=== PATIENT | female | born 1940 | race Caucasian/White ===

== ENCOUNTER 2017-07-09 22:53 | Inpatient (IN) | payer OTHER, MEDICAID ==
[2017-07-10 00:03] LABS: % IMMATURE GRANULYOCYTES 0.3 % (0.0-1.1); ABSOLUTE IMMATURE GRANULOCYTES 0.03 10^3/uL (0.00-0.10); ADD DIFF? NO; ADD MORPH? NO; ADD SCAN? NO; ATYPICAL LYMPHOCYTE FLAG 10 (0-99); FRAGMENT RBC FLAG 10 (0-99); HEMATOCRIT 40.3 % (38.0-47.0); HEMOGLOBIN 12.9 g/dL (12.6-16.3); LEFT SHIFT FLG 0 (0-99); LIPEMIA HEMOLYSIS FLAG 80 (0-99); MEAN CELL HEMOGLOBIN 26.5 pg (27.9-34.1); MEAN CELL VOLUME 82.9 fL (81.5-99.8); MEAN PLATELET VOLUME 10.2 fL (8.7-11.7); PLATELET CLUMPS FLAG 0 (0-99); PLATELET COUNT 320 10^3/uL (150-400); RED BLOOD CELL COUNT 4.86 10^6/uL (4.18-5.33); RED CELL DISTRIBUTION WIDTH 13.2 % (11.5-15.2)
--- NOTE | 2017-07-10 00:06 | EDPHY ---
H & P Stated Complaint: Increased weakness today Time Seen by Provider: 07/09/17 23:10 HPI/ROS: Chief Complaint: Increased leg weakness HPI: 76-year-old woman with a diagnosis of an autoimmune neuropathy is presenting with increasing lower extremity weakness today. Patient normally gets around on a scooter was usually able to ambulate in her home. She sat on the couch at 6 o'clock tonight but it o'clock when she tried to get up she was unable to weightbear stand. She describes weakness in both of her legs. She has had similar symptoms in the past but not to this degree. Denies any fevers or chills. No nausea or vomiting. Has had some cloudy urine for the last couple of weeks. No abdominal pain. No fevers or chills. No back pain. She is otherwise in her normal state of health. She sees Dr. Salgado from Neurology was been following or as an appoint with him on the . EMS was called and she was unable to weightbear on her own at home. ROS: 10 point Review of Systems is negative except as noted in the HPI. PMH: Unspecified autoimmune neuropathy, hypertension, left bundle-branch block Medications: Metoprolol Allergies: No known drug allergies Social History: No smoking, no alcohol, no recreational drug use Family History: non-contributory Physical Exam: Gen: Awake, Alert, No Distress HEENT: Nose: no rhinorrhea Eyes: PERRLA, EOMI Mouth: Moist mucosa Neck: Supple, no JVD Chest: nontender, lungs clear to auscultation Heart: S1, S2 normal, no murmur Abd: Soft, non-tender, no guarding Back: no CVA tenderness, no midline tenderness Ext: no edema, non-tender Skin: no rash Neuro: CN II-XII intact, Sensation grossly intact, Strength strength is 4 in 5 in bilateral upper extremities, she has proximal weakness in bilateral lower extremities is unable to raise her legs above the bed but is able to move them bilaterally. - Personal History Current Tetanus/Diphtheria Vaccine: Yes Current Tetanus Diphtheria and Acellular Pertussis (TDAP): Yes - Medical/Surgical History Hx Asthma: No Hx Chronic Respiratory Disease: No Hx Diabetes: No Hx Cardiac Disease: Yes Hx Renal Disease: No Hx Cirrhosis: No Hx Alcoholism: No Hx HIV/AIDS: No Hx Splenectomy or Spleen Trauma: No Other PMH: nueropathy, htn, lupus like autoinmmune disorder - Social History Smoking Status: Never smoked Constitutional: Initial Vital Signs Temperature (C) 37.4 C 07/09/17 23:04 Heart Rate 79 07/09/17 23:04 Respiratory Rate 18 07/09/17 23:04 Blood Pressure 191/102 H 07/09/17 23:04 O2 Sat (%) 92 07/09/17 23:04 O2 Delivery Mode Room Air Allergies/Adverse Reactions: Penicillins Allergy (Unknown, Verified 01/27/12 22:58) Unknown methotrexate [Methotrexate] Allergy (Verified 01/27/12 22:58) Home Medications: Medication Instructions Recorded Metoprolol Tartrate [Lopressor 25 25 mg PO BID #60 tab 04/04/14 mg (*)] Medical Decision Making - Diagnostics EKG Interpretation: ECG time 1:08 a.m. left bundle branch block with a rate of 58, unchanged from prior. ED Course/Re-evaluation: 76-year-old woman with a worsening symmetrical weakness of her bilateral lower extremities to the point that she is unable to weightbear at home at this time. ECG shows a left bundle branch block which is unchanged from her priors. She has not had any chest pain or shortness of breath. I am awaiting urinalysis results. She has an elevated troponin to 0.07. Does have a history of renal insufficiency in the past and seeing on her medical history. She will certainly need to be admitted for further evaluation. I have discussed with Dr. Villa. He will admit to his service for further evaluation. - Data Points Laboratory Results: Laboratory Results 07/09/17 23:08 07/09/17 23:08 07/10/17 07/09/17 07/09/17 01:45 23:08 23:08 WBC 8.90 10^3/uL 10^3/uL (3.80-9.50) RBC 4.86 10^6/uL 10^6/uL (4.18-5.33) Hgb 12.9 g/dL g/dL (12.6-16.3) Hct 40.3 % % (38.0-47.0) MCV 82.9 fL fL (81.5-99.8) MCH 26.5 pg L pg (27.9-34.1) MCHC 32.0 g/dL L g/dL (32.4-36.7) RDW 13.2 % % (11.5-15.2) Plt Count 320 10^3/uL 10^3/uL (150-400) MPV 10.2 fL fL (8.7-11.7) Neut % (Auto) 69.1 % % (39.3-74.2) Lymph % (Auto) 21.1 % % (15.0-45.0) [place] % (Auto) 7.1 % % (4.5-13.0) Eos % (Auto) 2.1 % % (0.6-7.6) Baso % (Auto) 0.3 % % (0.3-1.7) Nucleat RBC Rel Count 0.0 % % (0.0-0.2) Absolute Neuts (auto) 6.14 10^3/uL 10^3/uL (1.70-6.50) Absolute Lymphs (auto) 1.88 10^3/uL 10^3/uL (1.00-3.00) Absolute Monos (auto) 0.63 10^3/uL 10^3/uL (0.30-0.80) Absolute Eos (auto) 0.19 10^3/uL 10^3/uL (0.03-0.40) Absolute Basos (auto) 0.03 10^3/uL 10^3/uL (0.02-0.10) Absolute Nucleated RBC 0.00 10^3/uL 10^3/uL (0-0.01) Immature Gran % 0.3 % % (0.0-1.1) Immature Gran # 0.03 10^3/uL 10^3/uL (0.00-0.10) Sodium 139 mEq/L mEq/L (134-144) Potassium 3.3 mEq/L L mEq/L (3.5-5.2) Chloride 102 mEq/L mEq/L (97-110) Carbon Dioxide 24 mEq/l mEq/l (22-31) Anion Gap 13 mEq/L mEq/L (8-16) BUN 11 mg/dL mg/dL (7-23) Creatinine 1.2 mg/dL H mg/dL (0.6-1.0) Estimated GFR 44 Glucose 114 mg/dL H mg/dL (70-100) Calcium 9.7 mg/dL mg/dL (8.5-10.4) Troponin I 0.070 ng/mL H ng/mL (0.000-0.034) Urine Color Pending Urine Appearance Pending Urine pH Pending Ur Specific [place] Pending Urine Protein Pending Urine Ketones Pending Urine Blood Pending Urine Nitrate Pending Urine Bilirubin Pending Urine Urobilinogen Pending Ur Leukocyte Esterase Pending Urine Glucose Pending Departure - Departure Disposition: [facility] Inpatient Acute Clinical Impression: Weakness Condition: Fair Referrals: Dorys Schneider NP [Primary Care Provider] - As per Instructions
[2017-07-10 00:14] LABS: ANION GAP 13 mEq/L (8-16); CALCIUM 9.7 mg/dL (8.5-10.4); CARBON DIOXIDE 24 mEq/l (22-31); CHLORIDE 102 mEq/L (97-110); CREATININE 1.2 mg/dL (0.6-1.0); GLOMERULAR FILTRATION RATE 44; GLUCOSE 114 mg/dL (70-100); POTASSIUM 3.3 mEq/L (3.5-5.2); SODIUM 139 mEq/L (134-144)
--- NOTE | 2017-07-10 01:11 | CPEKG ---
Heart Rate: 58 RR Interval: 1034 P-R Interval: 204 QRSD Interval: 168 QT Interval: 512 QTC Interval: 504 P [place]: 55 QRS [place]: -31 T Wave [place]: 150 EKG Severity - ABNORMAL ECG - EKG Impression: SINUS RHYTHM EKG Impression: LEFT BUNDLE BRANCH BLOCK Electronically Signed By: Ariel Ma 10-Jul-2017 07:08:52
[2017-07-10 01:54] LABS: COLOR YELLOW; LEUKOCYTE ESTERASE,URINE 3+ (NEGATIVE); NITRITE,URINE POSITIVE (NEGATIVE)
[2017-07-10 02:14] LABS: BACTERIA 1+ /hpf (NONE SEEN); WBC,URINE 50-182 /hpf (0-3)
[2017-07-10] MEDS ORDERED: ONDANSETRON 4 MG/2 ML VIAL IVP PRN (02:27)
[2017-07-10] MEDS ORDERED: ONDANSETRON DISINTEGRATING 4 MG TAB PO PRN (02:27)
[2017-07-10] MEDS ORDERED: NS 1,000 ML IV ONE (02:27)
[2017-07-10] MEDS ORDERED: ACETAMINOPHEN 325 MG TAB PO PRN (02:27)
--- NOTE | 2017-07-10 02:33 | PDGENHP ---
History and Physical - Chief Complaint Weakness - History of Present Illness 76 yo F w/ hx of idiopathic neuropathy and HTN presents with fatigue and generalized weakness. Patient mostly uses a motorized scooter for mobility but is usually able to rise from a seated position and take a few steps. On the evening prior to admission, however, patient felt very weak and could not rise from a seated position. She lives alone and as a result called EMS. Aside from weakness and fatigue, she denies other symptoms, including fever, chills, dysuria. frequency, flank pain, and diarrhea. History Information - Allergies/Home Medication List Allergies/Adverse Reactions: Penicillins Allergy (Unknown, Verified 01/27/12 22:58) Unknown methotrexate [Methotrexate] Allergy (Verified 01/27/12 22:58) I have personally reviewed and updated: family history, medical history - Past Medical History hypertension Additional medical history: Idiopathic neuropathy - Family History Negative for: connective tissue disorder - Social History Smoking Status: Never smoked Drug Use: None Review of Systems ROS: 10pt was reviewed & negative except for what was stated in HPI & below Physical Exam Temp Pulse Resp BP Pulse Ox 36.5 C 71 16 184/110 H 92 07/10/17 01:00 07/10/17 02:00 07/10/17 02:00 07/10/17 02:00 07/10/17 02:00 Constitutional: no apparent distress, obese Eyes: PERRL, EOMI Ears, Nose, Mouth, Throat: moist mucous membranes, no oral mucosal ulcers Cardiovascular: regular rate and rhythym, no murmur, rub, or gallop Respiratory: no respiratory distress, no rales or rhonchi Gastrointestinal: normoactive bowel sounds, soft, non-tender abdomen Skin: warm, no rashes or abrasions Musculoskeletal: no muscle tenderness, no joint effusions Neurologic: AAOx3, CN II-XII Intact, other (4+/5 b/ LE strength, symmetric) Psychiatric: interacting appropriately, not anxious Lab Data & Imaging Review 07/09/17 23:08 07/09/17 23:08 WBC 8.90 10^3/uL (3.80-9.50) 07/09/17 23:08 RBC 4.86 10^6/uL (4.18-5.33) 07/09/17 23:08 Hgb 12.9 g/dL (12.6-16.3) 07/09/17 23:08 Hct 40.3 % (38.0-47.0) 07/09/17 23:08 MCV 82.9 fL (81.5-99.8) 07/09/17 23:08 MCH 26.5 pg (27.9-34.1) L 07/09/17 23:08 MCHC 32.0 g/dL (32.4-36.7) L 07/09/17 23:08 RDW 13.2 % (11.5-15.2) 07/09/17 23:08 Plt Count 320 10^3/uL (150-400) 07/09/17 23:08 MPV 10.2 fL (8.7-11.7) 07/09/17 23:08 Neut % (Auto) 69.1 % (39.3-74.2) 07/09/17 23:08 Lymph % (Auto) 21.1 % (15.0-45.0) 07/09/17 23:08 [place] % (Auto) 7.1 % (4.5-13.0) 07/09/17 23:08 Eos % (Auto) 2.1 % (0.6-7.6) 07/09/17 23:08 Baso % (Auto) 0.3 % (0.3-1.7) 07/09/17 23:08 Nucleat RBC Rel Count 0.0 % (0.0-0.2) 07/09/17 23:08 Absolute Neuts (auto) 6.14 10^3/uL (1.70-6.50) 07/09/17 23:08 Absolute Lymphs (auto) 1.88 10^3/uL (1.00-3.00) 07/09/17 23:08 Absolute Monos (auto) 0.63 10^3/uL (0.30-0.80) 07/09/17 23:08 Absolute Eos (auto) 0.19 10^3/uL (0.03-0.40) 07/09/17 23:08 Absolute Basos (auto) 0.03 10^3/uL (0.02-0.10) 07/09/17 23:08 Absolute Nucleated RBC 0.00 10^3/uL (0-0.01) 07/09/17 23:08 Immature Gran % 0.3 % (0.0-1.1) 07/09/17 23:08 Immature Gran # 0.03 10^3/uL (0.00-0.10) 07/09/17 23:08 Sodium 139 mEq/L (134-144) 07/09/17 23:08 Potassium 3.3 mEq/L (3.5-5.2) L 07/09/17 23:08 Chloride 102 mEq/L (97-110) 07/09/17 23:08 Carbon Dioxide 24 mEq/l (22-31) 07/09/17 23:08 Anion Gap 13 mEq/L (8-16) 07/09/17 23:08 BUN 11 mg/dL (7-23) 07/09/17 23:08 Creatinine 1.2 mg/dL (0.6-1.0) H 07/09/17 23:08 Estimated GFR 44 07/09/17 23:08 Glucose 114 mg/dL (70-100) H 07/09/17 23:08 Calcium 9.7 mg/dL (8.5-10.4) 07/09/17 23:08 Troponin I 0.070 ng/mL (0.000-0.034) H 07/09/17 23:08 Urine Color YELLOW 07/10/17 01:45 Urine Appearance HAZY 07/10/17 01:45 Urine pH 6.0 (5.0-7.5) 07/10/17 01:45 Ur Specific [place] 1.011 (1.002-1.030) 07/10/17 01:45 Urine Protein NEGATIVE (NEGATIVE) 07/10/17 01:45 Urine Ketones NEGATIVE (NEGATIVE) 07/10/17 01:45 Urine Blood 1+ (NEGATIVE) H 07/10/17 01:45 Urine Nitrate POSITIVE (NEGATIVE) H 07/10/17 01:45 Urine Bilirubin NEGATIVE (NEGATIVE) 07/10/17 01:45 Urine Urobilinogen NEGATIVE EU (0.2-1.0) 07/10/17 01:45 Ur Leukocyte Esterase 3+ (NEGATIVE) H 07/10/17 01:45 Urine RBC 10-15 /hpf (0-3) H 07/10/17 01:45 Urine WBC 50-182 /hpf (0-3) H 07/10/17 01:45 Ur Epithelial Cells TRACE /lpf (NONE-1+) 07/10/17 01:45 Urine Bacteria 1+ /hpf (NONE SEEN) H 07/10/17 01:45 Urine Glucose NEGATIVE (NEGATIVE) 07/10/17 01:45 Assessment & Plan Assessment: 76 yo F w/ hx of idiopathic neuropathy and HTN presents with generalized weakness 2/2 UTI. Plan: 1. Urinary tract infection - +Nitrates, +LE, +bacteria, >50 WBCs on UA. No signs or symptoms of pyelonephritis, suspect cystitis. - CTX IV 1 g qD - Urine culture ordered - IVF 2. Generalized weakness - Suspect related to urinary tract infection noting grossly infectious urinalysis. Patient denies focal weakness and I suspect this is mild exacerbation of existing deconditioning. - UTI treatment as above 3. Idiopathic neuropathy - Reviewed records at length. It appears patient has distant diagnosis of idiopathic neuropathy, which is perhaps related to an autoimmune etiology. However, little work-up has been undertaken for this in several years. She has been treated conservatively for this in recent years and takes no medication related to this. 4. Uncontrolled hypertension - Takes metoprolol only at home. SBP>180 in ED here. Will use PRN medication to keep SBP<200 tonight. Diet - Regular Ppx - LMWH Code - DNR per discussion with patient, MOST form filled out Dispo - Admit to observation
[2017-07-10] MEDS ORDERED: LABETALOL HCL 200 MG TAB PO ONE (03:34)
[2017-07-10 05:04] LABS: % IMMATURE GRANULYOCYTES 0.4 % (0.0-1.1); ABSOLUTE IMMATURE GRANULOCYTES 0.03 10^3/uL (0.00-0.10); ADD DIFF? NO; ADD MORPH? NO; ADD SCAN? NO; ATYPICAL LYMPHOCYTE FLAG 10 (0-99); FRAGMENT RBC FLAG 0 (0-99); HEMATOCRIT 37.7 % (38.0-47.0); HEMOGLOBIN 12.3 g/dL (12.6-16.3); LEFT SHIFT FLG 0 (0-99); LIPEMIA HEMOLYSIS FLAG 80 (0-99); MEAN CELL HEMOGLOBIN CONCENTR. 32.6 g/dL (32.4-36.7); MEAN CELL VOLUME 82.7 fL (81.5-99.8); MEAN PLATELET VOLUME 10.1 fL (8.7-11.7); PLATELET CLUMPS FLAG 10 (0-99); PLATELET COUNT 258 10^3/uL (150-400); RED BLOOD CELL COUNT 4.56 10^6/uL (4.18-5.33); RED CELL DISTRIBUTION WIDTH 13.1 % (11.5-15.2)
[2017-07-10 05:16] LABS: ANION GAP 12 mEq/L (8-16); CALCIUM 9.3 mg/dL (8.5-10.4); CARBON DIOXIDE 23 mEq/l (22-31); CHLORIDE 103 mEq/L (97-110); GLOMERULAR FILTRATION RATE 54; GLUCOSE 103 mg/dL (70-100); POTASSIUM 3.3 mEq/L (3.5-5.2); SODIUM 138 mEq/L (134-144)
[2017-07-10 05:27] LABS: TROPONIN I 0.066 ng/mL (0.000-0.034)
[2017-07-10] MEDS: ENOXAPARIN 40 MG/0.4 ML SYR SC SCH ×2 (09:39→11:49)
[2017-07-10] MEDS ORDERED: METOPROLOL TARTRATE 25 MG TAB PO ONE (12:36)
[2017-07-10] MEDS: hydrALAZINE 10 MG TAB PO PRN (13:14)
--- NOTE | 2017-07-10 13:48 | HOSPPROG ---
Hospitalist Progress Note Assessment/Plan: # Acute encephalopathy- patient has slow processing and tangential thinking - reports feeling cloudy certainly could be UTI alone however some focal weakness of UE we cant predictably correlate to neuropathy- ? HTNsive encephalopathy - no concerning meds to hold - better BP control - cont empiric Abx for UTI - non-contrast CT of head # Acute UTI - grossly abnormal UA - with systemic sx - cont IV ceftriaxone - follow urine cultures # Idiopathic Peripheral Neuropathy- patient does not ambulate baseline and lives alone - PT/OT - continue supportive care # HTNsive urgency - systolic BP in the 200's this afternoon - received Labetalol on admit certainly concerning with associated confusion - oxygen saturations 92% on RA TELE (personally reviewed and interpreted) sinus bradycardia - extra dose home metoprolol 25mg now - consider transition to labetalol PO as better BP agent # KEVIN - creatinine 1.2-> 1.0 improved with IVF overnight - cont to monitor # proph - lovenox # diet - cardiac # dispo - > 2 MN as requires cardiac medication titration and close monitoring I have discussed the case with RN - concerning constellation of confusion, elevated BP and weakness - check head CT now Subjective: feels foggy Objective: Vital Signs Temp Pulse Resp BP Pulse Ox 36.7 C 59 L 14 242/87 H 92 07/10/17 12:01 07/10/17 13:08 07/10/17 12:01 07/10/17 13:14 07/10/17 12:01 Laboratory Results 07/10/17 04:23 07/10/17 04:23 07/09/17 07/10/17 07/11/17 05:59 05:59 05:59 Intake Total 650 200 Balance 650 200 - Physical Exam Constitutional: chronically ill appearing Eyes: anicteric sclera Ears, Nose, Mouth, Throat: moist mucous membranes Cardiovascular: regular rate and rhythym, bradycardia Respiratory: no respiratory distress Gastrointestinal: normoactive bowel sounds Genitourinary: no bladder fullness Skin: warm, normal color Musculoskeletal: No asymmetric calves Neurologic: No AAOx3 Psychiatric: poor insight Lymph, Heme, Immunologic: no cervical LAD ICD10 Worksheet Patient Problems: Problems Problem Status Onset Weakness Acute Chronic Disease Mgmt/Transitional Care Acute Pneumonia Acute
[2017-07-10] MEDS ORDERED: METOPROLOL TARTRATE 25 MG TAB PO SCH (21:00)
[2017-07-11 04:25] LABS: ANION GAP 8 mEq/L (8-16); CALCIUM 9.1 mg/dL (8.5-10.4); CARBON DIOXIDE 24 mEq/l (22-31); CHLORIDE 106 mEq/L (97-110); GLOMERULAR FILTRATION RATE 54; GLUCOSE 92 mg/dL (70-100); POTASSIUM 3.8 mEq/L (3.5-5.2); SODIUM 138 mEq/L (134-144)
[2017-07-11] MEDS: LABETALOL HCL 200 MG TAB PO SCH ×2 (10:11→20:30)
[2017-07-11] MEDS: ENOXAPARIN 40 MG/0.4 ML SYR SC SCH ×2 (10:12→10:13)
--- NOTE | 2017-07-11 12:30 | NEUROPROG ---
Assessment: [id number] CC: Weakness HPI: This patient was initially seen 07/11/17 as an inpatient consult at [facility]. She is followed in the outpatient setting by Dr. 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 It causes her baseline global weakness and dysarthria per his notes. She uses a motorized scooter for mobility. She felt worsening fatigue and weakness in the last day so called EMS. She was brought to [facility] ER and found to have a urinary tract infection as well as elevated blood pressure. She was admitted for treatment of the UTI and HTN. The hospital evaluated her and noted possible focal weakness of her right upper extremity so ordered a neurology consult. When I evaluated her she had dysarthric speech right arm weakness focally as well as global weakness and deconditioning. She denied any prior history of a stroke. 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 Oriented x person/place/date . concentration appears normal . speech fluency/comprehension normal . memory appears normal . fund of knowledge appear intact - Cranial Nerves: . II: PERRL, VFFTC . III/IV/: EOMI, no nystagmus, saccadic smooth pursuits, no Ptosis . V: facial sensation intact to LT . VII: slight facial weakness globally . VIII: hearing intact to conversation . IX/X: uvula raises symmetrically, slightly dysarthric speech . XI: SCM 5/5 B/L strength . XII: tongue protrudes midline w/nl strength - Motor: . Tone: decreased tone throughout . Strength: 4+/5 strength throughout but right arm is and appears weaker than left side - Reflexes: B/L bic, patella 2/4 - Sensory: all 4 extrem intact to light touch - Coord: no dysfunction seen - Gait: deferred Labs: 07/10/17- CBC Hct 37.7, UA Nit+ 3+ LE, UCx +gram neg hadley 07/11/17- Chem wnl Rads: 07/10/17- Head CT w/o con: mod atrophy, no acute changes, mod CMVD, possible old b/l remote lacunar infarcts (I personally visualized the images on 07/11/17) Assessment: 1. UTI: treated with abx 2.Worsening Global Weakness, right arm weakness, dysarthria, and cognitive problems (acute): Her worsening generalized weakness, cognitive issues, and fatigue is likely from her baseline neuropathy (and possible prior lacunar strokes) being exacerbated by her acute UTI and acute hypertension. However, given dysarthria and focal weakness in right arm I will obtain a brain MRI and head/neck MRA to exclude stroke. She has a history of autoimmune disease so I will get the brain MRI w/contrast as well to exclude demyelination. 3. 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 Atypical Peripheral Neuropathy: Followed outpatient by Dr. Salgado 5. HTN Plan: - Brain MRI w/ and w/o con, head/neck MRA (if acute stroke seen on MRI pt will need echocardiogram) - 24 hour telemetry to exclude paroxysmal afib - Agree with abx for UTI - Ensure blood pressure < 140/90, H1AC < 7.0, and LDL < 70 (given prior remote strokes seen on head CT) - Recommend aspirin 81 mg qd for stroke prevention - Labs: H1AC, LDL - If LDL > 70 recommend beginning statin Objective: Vital Signs Temp Pulse Resp BP Pulse Ox 36.5 C 78 16 170/65 H 92 07/11/17 11:03 07/11/17 11:03 07/11/17 11:03 07/11/17 12:28 07/11/17 11:03 Laboratory Results 07/11/17 03:50 07/10/17 07/11/17 07/12/17 05:59 05:59 05:59 Intake Total 870 Balance 870 Allergies/Adverse Reactions: Penicillins Allergy (Unknown, Verified 01/27/12 22:58) Unknown methotrexate [Methotrexate] Allergy (Verified 01/27/12 22:58)
--- NOTE | 2017-07-11 14:08 | HOSPPROG ---
Hospitalist Progress Note Assessment/Plan: # Acute encephalopathy- patient has slow processing and tangential thinking - reports feeling cloudy Suspect multifactorial - UTI , neuropathy and possible HTNsive encephalopathy CT head (personally reviewed and interpreted) no acute changes - consulting Neurology today - better BP control - cont empiric Abx for UTI # Acute right hand weakness - concerning for either worsening neuropathy or possible stroke - - neuro consulting - MRI brain today # Acute UTI - grossly abnormal UA - with systemic sx- Urine culture with > 100, 000 CFU GN hadley - cont IV ceftriaxone - follow urine cultures for sensitivities # Idiopathic Peripheral Neuropathy- patient does not ambulate baseline and lives alone - PT/OT - continue supportive care # HTNsive urgency - systolic BP in the 200's this afternoon - received Labetalol on admit certainly concerning with associated confusion - oxygen saturations 92% on RA TELE (personally reviewed and interpreted) sinus rhythm - changing from metoprolol to labetalol 200mg BID # indeterminate troponin - patient without Chest pain - EKG without acute changes - defer further work up until acute tx of UTI and neuro sx # KEVIN - creatinine 1.2-> 1.0 improved with IVF overnight - cont to monitor # proph - lovenox # diet - cardiac # dispo - > 2 MN as requires cardiac medication titration and close monitoring I have discussed the case with Neurology - they will consult today and assist with eval of new neuro sx Subjective: right hand not working properly Objective: Vital Signs Temp Pulse Resp BP Pulse Ox 36.5 C 78 16 170/65 H 92 07/11/17 11:03 07/11/17 11:03 07/11/17 11:03 07/11/17 12:28 07/11/17 11:03 Laboratory Results 07/11/17 03:50 07/10/17 07/11/17 07/12/17 05:59 05:59 05:59 Intake Total 870 Balance 870 - Physical Exam Constitutional: chronically ill appearing Eyes: anicteric sclera Ears, Nose, Mouth, Throat: moist mucous membranes Cardiovascular: regular rate and rhythym Respiratory: no respiratory distress, no rales or rhonchi Gastrointestinal: normoactive bowel sounds, soft, non-tender abdomen Genitourinary: no bladder fullness Skin: warm, normal color Musculoskeletal: No asymmetric calves Neurologic: AAOx3, weakness (Right hand) Psychiatric: depressed, flat affect Lymph, Heme, Immunologic: no cervical LAD ICD10 Worksheet Patient Problems: Problems Problem Status Onset Weakness Acute Chronic Disease Mgmt/Transitional Care Acute Pneumonia Acute
[2017-07-11] MEDS ORDERED: GADOBUTROL 10 ML VIAL IVP ONE (15:26)
[2017-07-12 05:03] LABS: HEMATOCRIT 34.3 % (38.0-47.0); HEMOGLOBIN 11.1 g/dL (12.6-16.3); MEAN CELL HEMOGLOBIN 26.9 pg (27.9-34.1); MEAN CELL HEMOGLOBIN CONCENTR. 32.4 g/dL (32.4-36.7); MEAN CELL VOLUME 83.3 fL (81.5-99.8); RED BLOOD CELL COUNT 4.12 10^6/uL (4.18-5.33); RED CELL DISTRIBUTION WIDTH 13.4 % (11.5-15.2)
[2017-07-12] MEDS: ENOXAPARIN 40 MG/0.4 ML SYR SC SCH (08:57)
[2017-07-12] MEDS: LABETALOL HCL 200 MG TAB PO SCH ×2 (08:58→21:37)
[2017-07-12] MEDS: ASPIRIN EC 325 MG TAB PO SCH (10:23)
[2017-07-12 10:37] LABS: CHOLESTEROL 152 mg/dL (140-220); HIGH DENSITY LIPOPROTEIN 39 mg/dL (40-85); LDL/HDL RATIO 2.49 RATIO (1.00-3.22); LOW DENSITY LIPOPROTEIN 97 mg/dL (80-100); NON-HIGH DENSITY LIPOPROTEIN 113 mg/dL (90-129); TRIGLYCERIDE 83 mg/dL (35-135); VERY LOW DENSITY LIPOPROTEINS 16 mg/dL (8-25)
--- NOTE | 2017-07-12 11:39 | NEUROPROG ---
Assessment: [id number] CC: F/U for Left Sided Stroke Narrative Summary: This patient was initially seen 07/11/17 as an inpatient consult at [facility]. She is followed in the outpatient setting by Dr. 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 It causes her baseline global weakness and dysarthria per his notes. She uses a motorized scooter for mobility. She felt worsening fatigue and weakness in the last day so called EMS. She was brought to [facility] ER and found to have a urinary tract infection as well as elevated blood pressure. She was admitted for treatment of the UTI and HTN. The hospital evaluated her and noted possible focal weakness of her right upper extremity so ordered a neurology consult. When I evaluated her she had dysarthric speech and right arm weakness focally as well as global weakness and deconditioning. She denied any prior history of a stroke. I ordered a brain MRI w/ and w/o con and a head/ neck MRA. HPI: F/U 07/12/17. Brain MRI showed acute left side small strokes as well as amyloid angiopathy. MRA showed right ICA moderate stenosis. She denied any new problems. 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, HTN SHx: no tobacco FHx: no connective tissue disorder O: 07/11/17- NIH SS: 6 (RUE 2, LUE 1, LLE 1, RLE 1, Dysarthria 1) Labs: 07/10/17- CBC Hct 37.7, UA Nit+ 3+ LE, UCx +gram neg hadley 07/11/17- Chem wnl 07/12/17- LDL 97 Rads: 07/10/17- Head CT w/o con: mod atrophy, no acute changes, mod CMVD, possible old b/l remote lacunar infarcts (I personally visualized the images on 07/11/17) 07/11/17- Brain MRI w/ and w/o con: punctate strokes in the right cora/medulla, left thalamus, and left periventricular regions, atrophy/CMVD (severe), amyloid angiopathy 07/11/17- head/neck MRA: [place] is unremarkable, moderate stenosis of proximal right ICA Assessment: 1. UTI: treated with abx 2. Right cora and Left sided periventricular and thalamic punctate strokes: This explains her new right arm weakness and possibly her dysarthria (unclear if dysarthria is new or not). Unclear cause but could be an embolic shower. Concern for cardiac source. If TTE or telemetry does not disclose a cardiac cause then recommend proceeding to cardiology consult and CAMELIA. 3. Asymptomatic Right Proximal Moderate Stenosis: Her strokes are not in the right carotid distribution so I feel this is likely an asymptomatic finding. Recommend referral to Dr. Jerome Marie routinely after discharge to follow for any progression requiring surgery. 4. Possible old bilateral remote lacunar strokes seen on head CT 5. Atypical Peripheral Neuropathy: Followed outpatient by Dr. Salgado 6. HTN 7. Amyloid Angiopathy: Seen on brain MRI 07/11/17. Risk for brain hemorrhage but OK to use aspirin given her known strokes. 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 Salgado) 2-4 weeks after hospital discharge - Referral routinely outpatient to Dr. Jerome Marie to monitor asymptomatic right carotid stenosis Neurology will continue to follow. Dr. Acuña will be assuming the inpatient service tomorrow. 35 min spent with patient, majority of time spent counseling on stroke and treatment options. Objective: Vital Signs Temp Pulse Resp BP Pulse Ox 36.7 C 72 15 175/105 H 92 07/12/17 08:00 07/12/17 08:58 07/12/17 08:00 07/12/17 08:58 07/12/17 08:00 Laboratory Results 07/12/17 04:20 07/11/17 03:50 07/11/17 07/12/17 07/13/17 05:59 05:59 05:59 Intake Total 870 540 Balance 870 540 Allergies/Adverse Reactions: Penicillins Allergy (Unknown, Verified 01/27/12 22:58) Unknown methotrexate [Methotrexate] Allergy (Verified 01/27/12 22:58)
--- NOTE | 2017-07-12 13:51 | HOSPPROG ---
Hospitalist Progress Note Assessment/Plan: # Acute CVA - MRI brain (personally reviewed and interpreted) acute left periventricular infarction -scattered acute, subacute, old lacunar infarcts - neurology concern for embolic source secondary to scattered distribution - starting daily aspirin - transthoracic echocardiogram ordered - continue telemetry # Acute encephalopathy- mentation appears to be clearing daily Suspect multifactorial - UTI , neuropathy and possible HTNsive encephalopathy CT head (personally reviewed and interpreted) no acute changes - consulting Neurology today - better BP control - cont empiric Abx for UTI # Acute Klebsiella UTI - grossly abnormal UA - with systemic sx- Urine culture with > 100,000 CFU klebsiella - cont IV ceftriaxone # Idiopathic Peripheral Neuropathy- patient does not ambulate baseline and lives alone - PT/OT - continue supportive care # HTNsive urgency - systolic BP in the 200's on admit - labetalol 200 mg started twice daily systolics down to the 170s/180s overnight oxygen saturations 92% on RA TELE (personally reviewed and interpreted) sinus rhythm - up titrate to labetalol 300mg BID # indeterminate troponin - patient without Chest pain - EKG without acute changes - defer further work up until acute tx of UTI and neuro sx # KEVIN - creatinine 1.2-> 1.0 improved with IVF overnight - cont to monitor # proph - lovenox # diet - cardiac # dispo - > 2 MN as requires cardiac medication titration and close monitoring I have discussed the case with Neurology - they will consult today and assist with eval of new neuro sx Subjective: Mentation clearing Objective: Vital Signs Temp Pulse Resp BP Pulse Ox 36.7 C 68 18 175/90 H 91 L 07/12/17 11:58 07/12/17 11:58 07/12/17 11:58 07/12/17 11:58 07/12/17 11:58 Laboratory Results 07/12/17 04:20 07/11/17 03:50 07/11/17 07/12/17 07/13/17 05:59 05:59 05:59 Intake Total 870 540 Balance 870 540 - Physical Exam Constitutional: chronically ill appearing Eyes: anicteric sclera Ears, Nose, Mouth, Throat: moist mucous membranes Cardiovascular: regular rate and rhythym Respiratory: no respiratory distress, no rales or rhonchi Gastrointestinal: normoactive bowel sounds, soft, non-tender abdomen Genitourinary: no bladder fullness Skin: warm, normal color Musculoskeletal: No asymmetric calves Neurologic: AAOx3, other (Right upper extremity weakness) Psychiatric: depressed Lymph, Heme, Immunologic: no cervical LAD ICD10 Worksheet Patient Problems: Problems Problem Status Onset Weakness Acute Chronic Disease Mgmt/Transitional Care Acute Pneumonia Acute
--- NOTE | 2017-07-12 15:05 | ECHO ---
[id number] + + [address] : : [place] [address] : : [phone] + + Adult Echocardiographic Report + ------+ :Name: LIBBY CHEN Brian Date: 07/12/2017 02:04 PM : : Hospital Admission Number: [id number] Locatio n: 220: :: 1940 Gender: Female Height: 67 in : :Age: 76 yrs Race: WH Weight: 210 lb : :Reason For Study: Ischemic stroke : : BSA: 2.1 meters 2 : :History: No previous : + ------+ Doppler Measurements \T\ Calculations Ao mean P.4 mmHg LV V1 max: 108.0 cm/sec Ao V2 mean: 95.6 cm/sec LV V1 max P.7 mmHg Ao V2 VTI: 32.7 cm LV V1 mean P.4 mmHg LV V1 mean: 72.5 cm/sec LV V1 VTI: 24.0 cm Left Ventricle The left ventricle is normal in size. Ejection Fraction = 35-40%. Regional wall motion abnormalities cannot be excluded due to limited visualization. Right Ventricle The right ventricle is normal in size and function. Atria The left atrial size is normal. Right atrial size is normal. The interatrial septum is intact with no evidence for an atrial septal defect. Injection of contrast documented no interatrial shunt. Mitral Valve There is mild to moderate mitral annular calcification. Significant posterior leaflet thickening with reduced mobility. There is trace mitral regurgitation. Tricuspid Valve The tricuspid valve is normal in structure and function. No tricuspid regurgitation. Aortic Valve The aortic valve is not well visualized. There is no aortic stenosis. There is no aortic insufficiency. Pulmonic Valve The pulmonic valve is not well visualized. Pericardium/Pleural There is no pericardial effusion. There is a fat pad seen. Conclusion A complete two-dimensional transthoracic echocardiogram was performed (2D, M-mode, Doppler and color flow Doppler). The study was technically difficult. The study was technically limited. Contrast injection was performed. Ejection Fraction = 35-40%. Regional wall motion abnormalities cannot be excluded due to limited visualization. There is mild to moderate mitral annular calcification. Significant posterior mitral leaflet thickening with reduced mobility. There is trace mitral regurgitation. The aortic valve is not well visualized. Injection of agitated saline contrast was negattive for intracardiac shunt. Final Reading Physician: Sony Webster signed on 07/12/2017 03:04 PM Ordering Physician: Ariel Leiva Performed By: Lindsey Marlow
[2017-07-12] MEDS: hydrALAZINE 10 MG TAB PO PRN (16:30)
[2017-07-13 04:44] LABS: HEMATOCRIT 34.9 % (38.0-47.0); MEAN CELL HEMOGLOBIN 26.6 pg (27.9-34.1); MEAN CELL HEMOGLOBIN CONCENTR. 31.5 g/dL (32.4-36.7); MEAN CELL VOLUME 84.3 fL (81.5-99.8); RED BLOOD CELL COUNT 4.14 10^6/uL (4.18-5.33); RED CELL DISTRIBUTION WIDTH 13.5 % (11.5-15.2)
[2017-07-13] MEDS ORDERED: ATORVASTATIN CALCIUM 20 MG TAB PO SCH (09:00)
--- NOTE | 2017-07-13 09:34 | PDIAF ---
- Diagnosis Diagnosis: stroke Code Status: Do Not Resuscitate - Medication Management Discharge Medications: Medications to Continue on Transfer Aspirin EC [Aspirin EC 325 mg (*)] 325 mg PO DAILY tab 07/13/17 [Last Taken Unknown] Labetalol HCl [Trandate 200 mg (*)] 300 mg PO BID tab 07/13/17 [Last Taken Unknown] Discharge Medications: Refer to the Discharge Home Medication list for PRN reason. - Orders Services needed: Registered Nurse, Physical Therapy, Occupational Therapy, Speech Language Pathologist Diet Recommendation: cardiac -low fat low salt Diet Texture: Regular Texture Diet, Thin Liquids, Meds Whole w/Liquids - Follow Up Care Current Providers and Referrals: Dorys Schneider NP [Primary Care Provider] - As per Instructions Jaison Michelle MD [Medical Doctor] - Ariel Leiva DO [Medical Doctor] -
[2017-07-13] MEDS: ENOXAPARIN 40 MG/0.4 ML SYR SC SCH (09:43)
[2017-07-13] MEDS: LABETALOL HCL 200 MG TAB PO SCH (09:43)
[2017-07-13] MEDS: ASPIRIN EC 325 MG TAB PO SCH (09:44)
--- NOTE | 2017-07-13 11:23 | NEUROPROG ---
Assessment: INTERVAL HISTORY: Assuming care from Dr Leiva. Patient seen and examined during rounds. Daughter present at bedside. Patient still feeling weak in the RUE. No other notable changes. Patient is now amenable to aspirin therapy and continuing anti-HTN medication, but not wanting statin. EXAM: VS reviewed in EMR NIHSS 3 (1 RUE drift, 1 LLE drift, 1 RLE drift) DATA REVIEW (PERSONAL REVIEW AND INTERPRETATION): MRI shows mutliple punctate areas of acute infarct in the left hemisphere, both anterior and posterior circulation, cortical and subcortical. Single area of acute infarct noted in the low right occipital lobe. Multiple scattered areas of SWI blooming artifact about the cortex and subcortical white matter reflective of cerebral amyloid angiopathy. MRA head/neck shows moderate BRITTNY extracranial stenosis. LDL 97 A1c 6 TTE - no mass/shunt/thrombus IMPRESSION AND RECOMMENDATIONS: // ACUTE ISCHEMIC STROKE // CEREBRAL AMYLOID ANGIOPATHY // HTN // HLD // SEVERE PERIPHERAL POLYNEUROPATHY // UTI Patient with acute ischemic stroke resulting in RUE weakness. She has both left and right hemispheric involvement with anterior/posterior distributions of infarcts. This invokes a mechanism of cardioembolism. No arrhythmia captured on tele yet. Lengthy discussion with patient and daughter regarding stroke, mechanism and risk factors/secondary prevention strategies. I recommend she be maintained on ASA 81mg going forward - would not go higher on this dose or more intense in antithrombotic therapy given her CAA and risk of provoked lobar hemorrhage with more potent antithrombotics. Discussed statin therapy for goal LDL < 70 and pleiotropic effects of endothelial stabilization - patient declines at this time. 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 Salgado, her primary outpatient neurologist. She will need followup with cardiology after discharge for mobile cardiac outpatient telemetry and further evaluation of suspected afib. No further recommendations. Will sign off. 35 mins spent in direct patient care activities on the floor. Objective: Vital Signs Temp Pulse Resp BP Pulse Ox 36.7 C 69 14 145/85 H 91 L 07/13/17 08:30 07/13/17 08:30 07/13/17 08:30 07/13/17 08:30 07/13/17 08:30 Laboratory Results 07/13/17 03:58 07/11/17 03:50 07/12/17 07/13/17 07/14/17 05:59 05:59 05:59 Intake Total 540 300 Output Total 100 Balance 540 300 -100 Allergies/Adverse Reactions: Penicillins Allergy (Unknown, Verified 01/27/12 22:58) Unknown methotrexate [Methotrexate] Allergy (Verified 01/27/12 22:58)
[2017-07-13 11:40] VITALS: BP 140/75; PULSE 81; RESP 19; TEMP 98.7; O2SAT 92
--- NOTE | 2017-07-13 18:06 | GDS ---
[f rep st] DISCHARGE SUMMARY DISCHARGE DIAGNOSES: Include: 1. Acute lacunar infarct/ischemic stroke. 2. Cerebral amyloid angiopathy. 3. Hypertension. 4. Hyperlipidemia. 5. Severe peripheral polyneuropathy. 6. Acute Klebsiella urinary tract infection. HISTORY OF PRESENT ILLNESS: This is a 76-year-old female with a history of severe peripheral neurop athy, who presents with complaints of confusion and weakness. For details of patient's initial prese ntation, please see the history and physical dated 07/10/2017 for consultative services including Ne urology. PROCEDURES: On 07/13/2017, patient had an MRI of the brain that showed acute and subacute lacunar i nfarcts in a distribution most consistent with embolic source potentially from atrial fibrillation. HOSPITAL COURSE: By issue: 1. Acute ischemic stroke. Patient was watched on telemetry, not found to be in atrial fibrillation during this hospital stay but the distribution of acute, subacute and old lacunar infarcts were mos t consistent with an embolic source. It is Neurology's recommendation that the patient be started o n aspirin daily but not full-dose anticoagulation as amyloid angiopathy was noted on her imaging and no confirmed atrial fibrillation was seen. Patient has been referred to [facility] for outpatie nt event monitoring. Patient additionally had an LDL greater than goal. She has refused statin the rapy at discharge. Again, will follow in the outpatient setting with Neurology for long-term manage ment of her cerebral vascular disease. 2. Hypertensive urgency. Patient had her hypertension regimen titrated to labetalol 300 mg twice d aily, presented with systolic blood pressures in the 200s. On the day of discharge, her systolics w ere ranging in the 140s. She can continue to have her medications titrated as appropriate in the ou tpatient setting. 3. Klebsiella urinary tract infection. Patient did not present with specific dysuria complaints bu t was found to have an abnormal urinary tract infection and systemic symptoms initially thought to b e related to her urine. She received 4 days of IV ceftriaxone, will complete a 7-day course with 3 a dditional days of oral levofloxacin. MEDICATIONS AT THE TIME OF DISPOSITION: Please reference the med rec printed on 07/13/2017. FOLLOWUP APPOINTMENTS: Include with [facility] as well as outpatient Neurology, Dr. Leiva. PENDING STUDIES AT TIME OF DICTATION: None. TIME SPENT: I spent greater than 30 minutes in the planning and coordination of this discharge. /[id number]/MODL
== END 2017-07-13 15:36 | DRG 65 ==
LOC: EDUNIT# → INTOOBSV 07-10 01:58 → F2W 07-10 02:43 → OBSVTOIN 07-10 14:09
PROVIDERS: ADMIT Student in an Organized Health Care Education/Training Program; ATTEND Student in an Organized Health Care Education/Training Program
DX: I63.9 Cerebral infarction, unspecified (principal); N39.0 Urinary tract infection, site not specified; E85.4 Organ-limited amyloidosis; I68.0 Cerebral amyloid angiopathy; I16.0 Hypertensive urgency; E78.5 Hyperlipidemia, unspecified; G62.9 Polyneuropathy, unspecified; B96.1 Klebsiella pneumoniae [K. pneumoniae] as the cause of diseases classified elsewhere
CPT/HCPCS: 92523-GN; 92526-GN; 92610-GN; 97116-GP; 97161-GP; 97165-GO; 97530-GO; 97530-GP; A9585; G0378; G8978-GP-CM; G8979-GP-CK; G8987-GO-CL; G8988-GO-CJ; G8996-GN-CI; G8997-GN-CH; J0696; J1650